=== PATIENT | male | born 1995 | race African-American/Black ===

== ENCOUNTER 2016-11-29 11:17 | Emergency (ER) | payer SELFPAY ==
[~2016-11-29] VITALS: Ht 172.7 cm; Wt 59.0 kg
[2016-11-29 12:26] LABS: POTASSIUM ISTAT 3.6 mmol/L (3.5-5.0)
--- NOTE | 2016-11-29 12:48 | PHYS DOC ---
Past Medical History Past Medical History: No Pertinent History Past Surgical History: No Surgical History Alcohol Use: Heavy Additional Information: PT REPORTS HE IS A DAILY DRINKER, APPROXIMATELY "50 OZ." OF BEER PER DAY. PT DENIES HAVING ANY ALCOHOL TODAY. Drug Use: None Adult General Chief Complaint Chief Complaint: CHEST WALL PAIN HPI HPI Patient is a 21 year old male presents with complaints of chest heaviness, denies pain. However, the main complaint to the doctor was that he felt tingling in his fingers and his face. Patient doesn't describe any weakness or pain anywhere, no sick contacts, no exposures. Review of Systems Review of Systems Constitutional: Denies fever or chills Eyes: Denies change in visual acuity, redness, or eye pain HENT: no headache or pain Respiratory: Denies cough or shortness of breath Cardiovascular: No additional information not addressed in HPI GI: Denies abdominal pain Musculoskeletal: Denies back pain or joint pain or cramps Integument: Denies rash or skin lesions [] Neurologic: Denies headache, focal weakness or sensory changes [] Endocrine: Denies polyuria or polydipsia [] Allergies Allergies Allergies Coded Allergies Type Severity Reaction Last Updated Verified ibuprofen Allergy Severe "THROAT SWELLING" 11/29/16 No Physical Exam Physical Exam Constitutional: Well developed, well nourished, no acute distress, non-toxic appearance. [] HENT: Normocephalic, atraumatic, oropharynx moist, no oral exudates, nose normal. [] Eyes: PERRLA, EOMI, conjunctiva normal, no discharge. [] Neck: Normal range of motion, no tenderness, supple, no stridor. [] Cardiovascular:Heart rate regular rhythm, no murmur [] Lungs & Thorax: Bilateral breath sounds clear to auscultation, no tachypnea Abdomen: Bowel sounds normal, soft, no tenderness, no masses, no pulsatile masses. [] Skin: Warm, dry, no erythema, no rash, has tattoos that do not look infected Back: Normal rom Extremities: No tenderness, no cyanosis, no clubbing, ROM intact, no edema. [] Neurologic: Alert and oriented X 3, normal motor function, normal sensory function, no focal deficits noted, no pronator drift, FTN wnl. Pt ambulated in the ED without assistance and with normal gait Psychologic: Affect normal, judgement normal, mood normal. [] Current Patient Data Vital Signs Vital Signs Date Time Temp Pulse Resp B/P (MAP) Pulse Ox O2 Delivery O2 Flow Rate FiO2 11/29/16 11:50 98.2 58 18 139/74 (95) 100 Room Air 98.2 Lab Values Laboratory Tests Test 11/29/16 12:23 POC Hemoglobin 16.3 g/dL (14-18) POC Hematocrit 48 % (37-52) POC Sodium 141 mmol/L (135-145) POC Potassium 3.6 mmol/L (3.5-5.0) POC Chloride 103 mmol/L (98-110) POC Total CO2 26 mmol/L (23-32) Anion Gap 17 mmol/L (6-14) H POC Blood Urea Nitrogen 12 mg/dL (8-26) POC Creatinine 1.0 mg/dL (0.5-1.4) Glucose Level 77 mg/dL (70-99) POC Ionized Calcium (Matilde) 1.20 mmol/L (1.13-1.32) Laboratory Tests 11/29/16 12:23 EKG EKG [] Radiology/Procedures Radiology/Procedures [] Course & Med Decision Making Course & Med Decision Making Pertinent Labs and Imaging studies reviewed. (See chart for details) [dx: paresthesia, non specific chest pain] Dragon Disclaimer Dragon Disclaimer This electronic medical record was generated, in whole or in part, using a voice recognition dictation system. Departure Departure Referrals: NO PCP (PCP) Zainab BROWN MD Nov 29, 2016 12:48
[2016-11-29 12:53] VITALS: BP 122/66
--- NOTE | 2016-11-30 06:38 | EKG ---
[facility] [address] [place] [address] Test Date: 2016-11-29 Test Time: 11:45:31 Pat Name: BARRINGTON ALICIA Department: Room: Gender: M Digital Tech: : 1995 Requested By: Zainab BROWN Order Number: [id number] Reading MD: David Martin Measurements Intervals [place] Rate: 58 P: 74 TX: 182 QRS: 89 QRSD: 94 T: 48 QT: 376 QTc: 372 Interpretive Statements SINUS RHYTHM Electronically Signed On 12-01-2016 8:49:43 CDT by David Martin
== END 2016-11-29 13:15 | disposition home or self-care (01) ==
LOC: ER 11:17
DX: R07.89 Other chest pain (principal); R20.0 Anesthesia of skin
CPT/HCPCS: 80047; 93005; 99283-25

== ENCOUNTER 2021-02-09 12:53 | Emergency (ER) | payer OTHER ==
[~2021-02-09] VITALS: Ht 175.3 cm; Wt 63.6 kg
[2021-02-09 13:21] LABS: BILIRUBIN,URINE SMALL (NEG); CLARITY,URINE CLEAR; COLOR,URINE YELLOW; NITRITE,URINE NEGATIVE (NEG); PH,URINE 6.5 (<5.0-8.0); PROTEIN,URINE NEGATIVE (NEG-TRACE); UROBILINOGEN,URINE 0.2 mg/dL (0.2 mg/dL)
--- NOTE | 2021-02-09 13:24 | PHYS DOC ---
Past Medical History Past Medical History: No Pertinent History Past Surgical History: No Surgical History Smoking Status: Current Every Day Smoker Alcohol Use: Heavy Drug Use: None General Adult EDM: Chief Complaint: ABDOMINAL PAIN HPI: HPI: Patient is a 25 year old who presents with mid abdominal discomfort and cramping as well as nausea, vomiting, diarrhea. Symptoms began last night. He reports at least 4 episodes of vomiting and diarrhea today. He denies hematochezia or melena, or hematemesis. He denies fever chills. He denies cough, dyspnea, chest pain. He denies urinary symptoms. He denies recent travel, known sick contacts, or recent antibiotic use. He denies previous s imilar symptoms. He denies any previous abdominal surgery. He has no abdominal pain at present. He reports that he has not been able to eat or drink much at all today. He does admit to daily use of marijuana, as well as daily, heavy use of alcohol. He last drank alcohol last night. He denies any previous history of alcohol withdrawal symptoms. No previous known history of GI illnesses, per his report. Review of Systems: Review of Systems: Constitutional: Denies fever or chills. [] Eyes: Denies change in visual acuity. [] HENT: Denies nasal congestion or sore throat. [] Respiratory: Denies cough or shortness of breath. [] Cardiovascular: Denies chest pain or edema. [] GI: Reports epigastric abdominal discomfort, nausea vomiting and diarrhea. Denies constipation. Denies hematemesis, hematochezia or melena. : Denies urinary symptoms. Musculoskeletal: Denies back pain or joint pain. [] Integument: Denies rash. [] Neurologic: Denies headache, focal weakness or sensory changes. [] Lymphatic: Denies swollen glands. [] Psychiatric: Denies depression or anxiety. [] Heart Score: C/O Chest Pain: No Risk Factors: Risk Factors: DM, Current or recent (<one month) smoker, HTN, HLP, family history of CAD, obesity. Risk Scores: Score 0 - 3: 2.5% MACE over next 6 weeks - Discharge Home Score 4 - 6: 20.3% MACE over next 6 weeks - Admit for Clinical Observation Score 7 - 10: 72.7% MACE over next 6 weeks - Early Invasive Strategies Allergies: Allergies: Allergies Coded Allergies Type Severity Reaction Last Updated Verified ibuprofen Allergy Severe "THROAT SWELLING" 11/29/16 No Physical Exam: PE: Constitutional: Well developed, well nourished, no acute distress, non-toxic appearance. [] HENT: Normocephalic, atraumatic, bilateral external ears normal, oropharynx moist, no oral exudates, nose normal. [] Eyes: PERRLA, EOMI, conjunctiva nonicteric, no discharge. [] Neck: Normal range of motion, no tenderness, supple, no stridor. [] Cardiovascular:Heart rate regular rhythm, no murmur [] Lungs & Thorax: Bilateral breath sounds clear to auscultation [] Abdomen: Bowel sounds normal, soft, no tenderness, no masses, no pulsatile masses. No flank or abdominal ecchymoses. Skin: Warm, dry, no erythema, no rash. [] Back: No tenderness, no CVA tenderness. [] Extremities: No tenderness, no cyanosis, no clubbing, ROM intact, no edema. [] Neurologic: Alert and oriented X 3, normal motor function, normal sensory function, no focal deficits noted. [] Psychologic: Affect normal, judgement normal, mood normal. [] Current Patient Data: Vital Signs: Vital Signs Date Time Temp Pulse Resp B/P (MAP) Pulse Ox O2 Delivery O2 Flow Rate FiO2 02/09/21 13:10 98.1 64 16 135/78 (97) 98 Room Air 98.1 EKG: EKG: [] Radiology/Procedures: Radiology/Procedures: [] Course & Med Decision Making: Course & Med Decision Making Pertinent Labs and Imaging studies reviewed. (See chart for details) IV fluid, normal saline bolus given. IV Zofran and IV Protonix were given. The patient continues to deny abdominal pain. He has a benign, nonsurgical abdominal exam, with no objective evidence of tenderness. I have discussed the findings, differential diagnosis and plan of care with the patient. No current indication for emergent imaging or further invasive exams. I have recommended strongly that he cease use of alcohol, especially excessive alcohol. I recommend he establish care with a primary care physician. Dietary modification instructions were provided for home upon discharge. I have discussed very strict return precautions. He voiced understanding of instructions provided. Bi Disclaimer: Bi Disclaimer: This electronic medical record was generated, in whole or in part, using a voice recognition dictation system. Departure Departure Impression: Primary Impression: Nausea and vomiting Additional Impression: Epigastric discomfort Referrals: NO PCP (PCP) Patient Instructions: Alcoholic Gastritis-Brief, Gastritis, Adult Additional Instructions: Use the medication as directed. Eat a bland diet. Stay hydrated and drink plenty of fluids. Please avoid excess use of alcohol. Tobacco use may also worsen your condition. Please return immediately to the emergency department if you develop any severe abdominal pain, vomiting blood, bloody stools, fever of 100.4 or higher, evidence of dehydration, or any other concerns. Please establish care with a primary care physician for follow-up and routine care of your condition. Scripts Ondansetron Hcl (ZOFRAN) 4 Mg Tablet 1 TAB PO Q8HRS, #20 TAB Prov: GUANAKO KELLY DO 02/09/21 Omeprazole (OMEPRAZOLE) 20 Mg Capsule. 1 CAP PO DAILY, #30 CAP 5 Refills Prov: GUANAKO KELLY DO 02/09/21 GUANAKO KELLY DO Feb 09, 2021 13:24
[2021-02-09 13:30] LABS: BACTERIA,URINE 0 /HPF (0-FEW); RBC,URINE 0 /HPF (0-2)
[2021-02-09] MEDS ORDERED: IV NORMAL SALINE 1000ML BAG 1,000 ML IV SCH (13:30)
[2021-02-09] MEDS ORDERED: ONDANSETRON PF 4 MG/2 ML VIAL. IVP ONE (13:30)
[2021-02-09] MEDS ORDERED: PANTOPRAZOLE IV PUSH 40 MG VIAL. IVP ONE (13:30)
[2021-02-09 13:46] LABS: BASO # 0.1 x10^3/uL (0.0-0.2); BASO % 1 % (0-3); EOS # 0.1 x10^3/uL (0.0-0.7); EOS % 1 % (0-3); HEMATOCRIT 48.4 % (39.0-53.0); HEMOGLOBIN 17.1 g/dL (13.0-17.5); LYMPH # 1.3 x10^3/uL (1.0-4.8); LYMPH % 23 % (24-48); MEAN CORPUSCULAR HEMOGLOBIN 31 pg (25-35); MEAN CORPUSCULAR HGB CONC 35 g/dL (31-37); MEAN CORPUSCULAR VOLUME 87 fL (79-100); MONO # 0.4 x10^3/uL (0.0-1.1); MONO % 8 % (0-9); NEUT # 3.8 x10^3/uL (1.8-7.7); NEUT % 68 % (31-73); PLATELET COUNT 203 x10^3/uL (140-400); RED BLOOD COUNT 5.54 x10^6/uL (4.30-5.70); RED CELL DISTRIBUTION WIDTH 13.1 % (11.5-14.5); WHITE BLOOD COUNT 5.7 x10^3/uL (4.0-11.0)
[2021-02-09 14:01] LABS: ALBUMIN/GLOBULIN RATIO 1.1 (1.0-1.7); CALCIUM 8.9 mg/dL (8.5-10.1); CREATININE 0.9 mg/dL (0.7-1.3); GFR 124.4; POTASSIUM 3.6 mmol/L (3.5-5.1); TOTAL BILIRUBIN 0.8 mg/dL (0.2-1.0); TOTAL PROTEIN 7.6 g/dL (6.4-8.2)
[2021-02-09] MEDS ORDERED: ONDA4TAB7 PO (15:00)
[2021-02-09] MEDS ORDERED: OMEP20CA16 PO (15:00)
[2021-02-09 16:13] VITALS: BP 117/57
== END 2021-02-09 16:18 | disposition home or self-care (01) ==
LOC: ER 12:53
DX: R10.13 Epigastric pain (principal); R11.2 Nausea with vomiting, unspecified; R19.7 Diarrhea, unspecified; F17.200 Nicotine dependence, unspecified, uncomplicated; F10.20 Alcohol dependence, uncomplicated; Y90.9 Presence of alcohol in blood, level not specified; Z88.8 Allergy status to other drugs, medicaments and biological substances
CPT/HCPCS: 36415; 80053; 81001; 83690; 85025; 87086; 96361; 96374; 96375; 99285; C9113; J2405; J7030

== ENCOUNTER 2021-05-11 12:10 | Emergency (ER) | payer OTHER ==
[~2021-05-11 12:10] MED LIST: OMEP20CA16 PO; ONDA4TAB7 PO
== END 2021-05-11 14:09 | disposition left against medical advice (07) ==
LOC: ER 12:10
DX: R51.9 Headache, unspecified (principal); R07.89 Other chest pain; Z53.21 Procedure and treatment not carried out due to patient leaving prior to being seen by health care provider